=== PATIENT | male | born 1975 | race Caucasian/White ===

== ENCOUNTER → 2018-11-24 | Outpatient (CLI) | payer OTHER ==
[~2018-11-24] MED LIST: GADOBUTROL 10 ML VIAL IVP ONE
== END ==
LOC: FIMAGING 13:56
PROVIDERS: ATTEND Psychiatry & Neurology Neurology
DX: R55 Syncope and collapse (principal); R56.9 Unspecified convulsions
CPT/HCPCS: A9585

== ENCOUNTER → 2018-12-08 | Outpatient (CLI) | payer OTHER ==
--- NOTE | 2018-12-13 14:14 | CPEEG ---
[f rep st] ELECTROENCEPHALOGRAM DATE OF STUDY: 12/08/2018 DATE OF BEING READ: December 13 HISTORY: The patient is a 43-year-old who had an episode of syncope with some convulsive activity an d no prior history of seizure, but has returned to baseline with no deficits and unremarkable brain i maging. INDICATION: Evaluate for epileptiform activity and focal findings. DESCRIPTION OF RECORD: This is a technically adequate study obtained following partial sleep depriva tion. The background consists of a 10 Hz posterior predominant symmetric alpha rhythm, which attenua fritz on eye opening. Frontal central beta activity is present. There are no areas of focal slowing a nd no epileptiform discharges during the recording. Photic stimulation produces symmetric driving re sponses at several frequencies. Hyperventilation produces symmetric buildup. The patient becomes dr owsy and falls into light sleep. INTERPRETATION: This is a normal awake and light sleep EEG recording. /[id number]/MODL
== END ==
LOC: FCPNEURO 14:13
PROVIDERS: ATTEND Psychiatry & Neurology Neurology
DX: R56.9 Unspecified convulsions (principal); R55 Syncope and collapse